=== PATIENT | female | born 1970 | race Two or more races ===

== ENCOUNTER 2019-04-16 09:23 | Outpatient (CLI) | payer OTHER | END 2019-04-16 10:09 | disposition home or self-care (01) | LOC: NUCLEAR 09:23 | DX: M81.0 Age-related osteoporosis without current pathological fracture (principal) ==

== ENCOUNTER → 2019-04-16 | Outpatient (CLI) | payer OTHER | END | disposition home or self-care (01) | LOC: MAMO-SONO 07:44 | DX: Z12.13 Encounter for screening for malignant neoplasm of small intestine (principal); N63.11 Unspecified lump in the right breast, upper outer quadrant ==

== ENCOUNTER → 2020-05-21 | Outpatient (CLI) | payer OTHER | END | disposition home or self-care (01) | LOC: MAMO-SONO 05-20 14:15 → SONOGRAMA 05-20 14:45 → MAMO-SONO 13:56 | DX: R10.2 Pelvic and perineal pain (principal); Z12.31 Encounter for screening mammogram for malignant neoplasm of breast; N64.4 Mastodynia; N63.10 Unspecified lump in the right breast, unspecified quadrant; N63.20 Unspecified lump in the left breast, unspecified quadrant ==

== ENCOUNTER 2021-09-07 13:32 | Outpatient (CLI) | payer OTHER | END 2021-09-07 13:41 | disposition home or self-care (01) | LOC: MAMO-SONO 13:32 | PROVIDERS: ATTEND Internal Medicine | DX: E07.89 Other specified disorders of thyroid (principal); N60.12 Diffuse cystic mastopathy of left breast; E66.3 Overweight; I11.9 Hypertensive heart disease without heart failure; E03.8 Other specified hypothyroidism; Z12.31 Encounter for screening mammogram for malignant neoplasm of breast ==

== ENCOUNTER 2024-08-21 11:01 | Outpatient (CLI) | payer OTHER | END 2024-08-21 11:02 | disposition home or self-care (01) | LOC: NUCLEAR 11:01 | PROVIDERS: ATTEND Internal Medicine | DX: M81.0 Age-related osteoporosis without current pathological fracture (principal) ==

== ENCOUNTER 2024-08-21 13:56 | Outpatient (CLI) | payer OTHER | END 2024-08-21 14:00 | disposition home or self-care (01) | LOC: MAMO-SONO 13:56 | PROVIDERS: ATTEND Internal Medicine | DX: M81.0 Age-related osteoporosis without current pathological fracture (principal); N63.31 Unspecified lump in axillary tail of the right breast; N63.32 Unspecified lump in axillary tail of the left breast; N63.21 Unspecified lump in the left breast, upper outer quadrant ==

== ENCOUNTER → 2024-11-07 | Day surgery (SDC) | payer OTHER ==
[2024-11-06 10:50] VITALS: BP 141/83
[~2024-11-07] VITALS: Ht 154.9 cm; Wt 49.0 kg
[~2024-11-07] MED LIST: CEFAZOLIN SODIUM 1,000 MG VIAL IV ONE; CLINDAMYCIN PHOSPHATE 150 MG/ML (900mg) IV ONE; COZAAR50 MG PO; GENTAMICIN SULFATE 40 MG/ML VIAL IR ONE; NP THYROID60 MG PO; POVIDONE-IODINE 118 ML BOTT TOP ONE; POVIDONE-IODINE SCRUB 118 ML BOTT TOP ONE
== END | disposition home or self-care (01) ==
LOC: ADM 11-06 15:30 → CIR.AMB 06:00
PROVIDERS: ATTEND Surgery
DX: C50.411 Malignant neoplasm of upper-outer quadrant of right female breast (principal); D48.62 Neoplasm of uncertain behavior of left breast; I10 Essential (primary) hypertension; E03.8 Other specified hypothyroidism; R59.0 Localized enlarged lymph nodes